=== PATIENT | female | born 1985 | race African-American/Black ===

== ENCOUNTER 2021-10-26 04:38 | Emergency (ER) | payer OTHER ==
[2021-10-26 05:23] VITALS: BP 107/73; PULSE 72; TEMP 98.8; BMI 36.9
== END 2021-10-26 06:10 | disposition home or self-care (01) ==
LOC: JER 04:38
DX: J11.1 Influenza due to unidentified influenza virus with other respiratory manifestations (principal); Z11.52 Encounter for screening for COVID-19
CPT/HCPCS: 87804; 87807; 99283-25; C9803; U0003; U0005